=== PATIENT | female | born 1970 | race Caucasian/White ===

== ENCOUNTER 2016-10-02 05:58 | Emergency (ER) | payer SELFPAY ==
[~2016-10-02] VITALS: Ht 157.5 cm; Wt 57.0 kg
[2016-10-02] MEDS ORDERED: TETANUS, DIPHTHERIA, PERTUSSIS VAC/PF 0.5ML (>7YR OLD) IM ONE (07:15)
[2016-10-02] MEDS ORDERED: LIDOCAINE HCL 2%/EPINEPHRINE/PF 10 ML VIAL INFIL ONE (07:15)
[2016-10-02] MEDS ORDERED: BACITRACIN ZINC OINT UDPKT TOP ONE (07:15)
[2016-10-02] MEDS ORDERED: KETOROLAC 60MG/2ML VIAL IM ONE (07:15)
[2016-10-02 08:50] VITALS: BP 159/78
== END 2016-10-02 09:39 | disposition home or self-care (01) ==
LOC: ER 06:27
DX: S61.512A Laceration without foreign body of left wrist, initial encounter (principal); W31.89XA Contact with other specified machinery, initial encounter; Y93.89 Activity, other specified; Y92.010 Kitchen of single-family (private) house as the place of occurrence of the external cause
CPT/HCPCS: 12002; 96372; 99283; J1885; J3490; X7700; Z7610

== ENCOUNTER 2023-12-03 10:39 | Emergency (ER) | payer MEDICAID ==
[~2023-12-03] VITALS: Ht 162.6 cm; Wt 61.4 kg
[2023-12-03 10:50] VITALS: TEMP 98.5; O2SAT 98
[2023-12-03] MEDS ORDERED: BO1 TP (12:13)
[2023-12-03] MEDS ORDERED: IBUP-2028 MT (12:13)
[2023-12-03 12:38] VITALS: BP 133/84; PULSE 81; RESP 18
[2023-12-03] MEDS: IBUPROFEN 600MG TABLET PO ONE (12:38)
== END 2023-12-03 13:35 | disposition home or self-care (01) ==
LOC: ER 10:39
DX: G57.62 Lesion of plantar nerve, left lower limb (principal); Z87.442 Personal history of urinary calculi; Z98.51 Tubal ligation status; Z98.890 Other specified postprocedural states; Z90.49 Acquired absence of other specified parts of digestive tract
CPT/HCPCS: 73630; 99283

== ENCOUNTER 2024-01-07 08:25 | Emergency (ER) | payer MEDICAID, OTHER ==
[~2024-01-07] VITALS: Ht 157.5 cm; Wt 58.0 kg
[~2024-01-07 08:25] MED LIST: BO1 TP; IBUP-2028 MT
[2024-01-07 08:34] VITALS: O2SAT 100
[2024-01-07] MEDS ORDERED: CLIN-194 MT (09:20)
[2024-01-07] MEDS ORDERED: OFLO5DRO4 RIGHT EAR (09:20)
[2024-01-07 10:12] VITALS: BP 136/78; PULSE 78; RESP 16; TEMP 97.9
== END 2024-01-07 10:15 | disposition home or self-care (01) ==
LOC: ER 08:25
DX: L02.91 Cutaneous abscess, unspecified (principal); H60.592 Other noninfective acute otitis externa, left ear; Z90.49 Acquired absence of other specified parts of digestive tract; Z98.51 Tubal ligation status; Z87.442 Personal history of urinary calculi
CPT/HCPCS: 73140; 73660; 99284

== ENCOUNTER 2024-11-04 14:11 | Emergency (ER) | payer SELFPAY ==
[~2024-11-04] VITALS: Ht 165.1 cm; Wt 66.0 kg
[~2024-11-04 14:11] MED LIST changes: +CLIN-194 MT; +OFLO5DRO4 RIGHT EAR
[2024-11-04 14:27] VITALS: O2SAT 97
[2024-11-04 15:34] LABS: BASOPHILS % 0.8 % (0.0-2.0); EOSINOPHILS % 2.1 % (0.0-5.0); HEMATOCRIT. 43.5 % (36.0-48.0); HEMOGLOBIN. 14.9 g/dL (12.0-16.0); LYMPHOCYTES % 24.5 % (20.0-50.0); MEAN CORPUSCULAR HEMOGLOBIN 32.5 pg (28.0-32.0); MEAN CORPUSCULAR HGB CONC 34.2 g/dL (31.0-37.0); MEAN PLATELET VOLUME 7.1 fl (7.4-10.4); MONOCYTES % 6.8 % (2.0-8.0); NEUTROPHILS % 65.8 % (40.0-76.0); PLATELET 411 x1000/uL (130-400); RED BLOOD CELL COUNT 4.58 mill/uL (4.2-5.4); RED CELL DISTRIBUTION WIDTH 12.9 % (11.6-14.6); WHITE BLOOD COUNT 7.3 x1000/uL (4.5-11.0)
[2024-11-04 15:42] LABS: CHLORIDE 100 mEq/L (98-107); POTASSIUM 4.6 mEq/L (3.5-5.1); SODIUM 135 mEq/L (136-145)
[2024-11-04 15:43] LABS: CALCIUM 9.4 mg/dL (8.7-10.4); CARBON DIOXIDE 27 mEq/L (21-32)
[2024-11-04 15:48] LABS: CREATININE 1.1 mg/dL (0.6-1.0); GLUCOSE 104 mg/dL (70-105); UREA NITROGEN BLOOD 15 mg/dL (9-23)
[2024-11-04 15:50] LABS: ALANINE AMINOTRANSFERASE 39 IU/L (10-49); ALBUMIN 4.7 g/dL (3.2-4.8); ASPARTATE AMINOTRANSFERASE 57 IU/L (<34); BILIRUBIN DIRECT 0.2 mg/dL (<=3.0)
[2024-11-04 15:51] LABS: HCG SCREEN NEGATIVE; PROTEIN TOTAL 7.3 g/dL (6.0-8.3)
[2024-11-04 16:35] VITALS: TEMP 36.9; O2SAT 98
[2024-11-04] MEDS ORDERED: KETOROLAC 30MG/ML VIAL IM ONE (17:00)
[2024-11-04] MEDS ORDERED: OFLO5DRO4 LEFT EAR (18:11)
[2024-11-04] MEDS ORDERED: IBUP-2029 MT (18:11)
[2024-11-04 18:45] VITALS: BP 152/99; PULSE 79; RESP 19
[2024-11-04] MEDS: KETOROLAC 30MG/ML VIAL IM NR (18:45)
[2024-11-04 18:57] LABS: CLARITY URINE CLEAR (CLEAR); COLOR URINE DARK YELLOW (YELLOW); GLUCOSE URINE NEGATIVE (NEGATIVE); KETONES URINE 1+ (NEGATIVE); LEUKOCYTE ESTERASE URINE 1+ (NEGATIVE); NITRITE URINE NEGATIVE (NEGATIVE); OCCULT BLOOD URINE TRACE (NEGATIVE); PH URINE 5.5 (4.5-8.0); PROTEIN URINE TRACE (NEGATIVE); SPECIFIC GRAVITY URINE 1.031 (1.005-1.030)
[2024-11-04 19:17] LABS: BACTERIA URINE TRACE; RBC URINE 0-2 /hpf (0-2); SQUAMOUS EPITHELIAL CELL URINE FEW /lpf (RARE/1+)
[2024-11-04] MEDS ORDERED: NITR-87 MT (19:31)
== END 2024-11-04 20:22 | disposition home or self-care (01) ==
LOC: ER 14:35
DX: H60.92 Unspecified otitis externa, left ear (principal); R10.84 Generalized abdominal pain; N39.0 Urinary tract infection, site not specified; Z90.49 Acquired absence of other specified parts of digestive tract; Z98.51 Tubal ligation status; Z79.899 Other long term (current) drug therapy
CPT/HCPCS: 80076; 80048; 81003; 81025; 84703; 83690; 85025; 36415; 74176; 96372; 99285; J1885; Z7610

== ENCOUNTER 2024-11-09 05:03 | Emergency (ER) | payer MEDICAID ==
[~2024-11-09] VITALS: Ht 162.6 cm; Wt 62.0 kg
[~2024-11-09 05:03] MED LIST changes: +IBUP-2029 MT; +NITR-87 MT; +OFLO5DRO4 LEFT EAR; -OFLO5DRO4 RIGHT EAR
[2024-11-09 05:18] VITALS: TEMP 36.9; O2SAT 100
[2024-11-09 05:47] VITALS: O2SAT 100
[2024-11-09 05:50] VITALS: BP 119/99; PULSE 87; RESP 18
[2024-11-09] MEDS: KETOROLAC 15MG/ML VIAL IM ONE (05:50)
[2024-11-09 05:51] VITALS: TEMP 97.7
[2024-11-09] MEDS: ACETAMINOPHEN 325MG TABLET PO ONE (05:51)
[2024-11-09] MEDS ORDERED: OFLO5DRO4 LEFT EAR (06:12)
[2024-11-09] MEDS ORDERED: AMOX1TAB16 MT (06:12)
== END 2024-11-09 06:49 | disposition home or self-care (01) ==
LOC: ER 05:03
DX: H60.92 Unspecified otitis externa, left ear (principal); Z98.51 Tubal ligation status; Z90.49 Acquired absence of other specified parts of digestive tract; Z79.899 Other long term (current) drug therapy
CPT/HCPCS: 99283; 96372; J1885